=== PATIENT | female | born 1935 | race Caucasian/White ===

== ENCOUNTER 2017-09-21 12:58 | Inpatient (IN) ==
[2017-09-21] MEDS ORDERED: MORPHINE 4 MG/1 ML VIAL ONE (13:35)
[2017-09-21] MEDS ORDERED: ONDANSETRON 4 MG/2 ML VIAL ONE (13:35)
[2017-09-21] MEDS ORDERED: ONDANSETRON 4 MG/2 ML VIAL IV STA (13:37)
[2017-09-21] MEDS ORDERED: MORPHINE 4 MG/1 ML VIAL IV STA (13:37)
[2017-09-21 13:55] LABS: Basophils % 0.5 % (0.0-0.8); Eosinophils # 0.1 10*3/uL (0.0-0.87); Eosinophils % 1.2 % (0.00-10.9); Hemoglobin 12.5 GM/DL (12.0-16.0); Immature Granulocytes % 0.4 %; Immature Granulocytes Absolute 0.03 #; Lymphocytes # 1.3 10*3/uL (1.4-4.0); Lymphocytes % 15.9 % (21.3-54.2); Mean Corpuscular HGB Conc 34.7 GM/DL (32-36); Mean Corpuscular Hemoglobin 32 PG (27-34); Mean Corpuscular Volume 92.1 FL (87-102); Mean Platelet Volume 10.7 FL (9.6-12.0); Monocytes # 0.6 10*3/uL (0.11-0.8); Monocytes % 6.8 % (1.7-12.7); Neutrophils % 75.2 % (38.7-73.9); Platelet Count 216 T/CUMM (130-400); Red Blood Count 3.91 MC/CUMM (3.8-5.5); Red Cell Distribution Width 13.9 % (9.3-17.3)
[2017-09-21 14:54] LABS: Calcium 9.9 MG/DL (8.5-10.1); Osmolality,Calculated 287.1 MOS/KG (273-304); Potassium 3.6 MMOL/L (3.5-5.1)
[2017-09-21] MEDS ORDERED: ONDANSETRON 4 MG/2 ML VIAL IV PRN (14:57)
[2017-09-21] MEDS ORDERED: ACETAMINOPHEN 325 MG TABLET PO PRN (14:57)
[2017-09-21] MEDS: MORPHINE 4 MG/1 ML VIAL IV PRN ×2 (15:44→22:44)
[2017-09-21 16:49] LABS: Apearance,Urine CLEAR (Clear); Bacteria,Urine Occasional /HPF (Few); Bilirubin,Urine Negative (Negative); Blood, Urine Negative (Negative); Glucose,Urine (UA) Negative (Negative); Ketones,Urine 5 mg/dL (Negative); Nitrite,Urine Negative (Negative); Protein,Urine Negative; RBC,Urine 1 /HPF (0-4); Squamous Epithelial Cell,Urine Occasional /HPF (0-10); Urine Color Yellow (Yellow); Urine Specific Gravity 1.008 (1.001-1.035); Urine Urobilinogen < 2.0 EU/DL (0.2-1.0); WBC,Urine 1 /HPF (0-6)
[2017-09-21] MEDS: SODIUM CHLORIDE 0.9% 1,000 ML IV SCH (18:34)
[2017-09-21] MEDS: NEOMYCIN/POLYMYXIN/HC OTIC SOLN 10 ML BOTTLE RIGHT EAR SCH ×2 (18:43→22:14)
[2017-09-21] MEDS: DOCUSATE SODIUM 100 MG CAPSULE PO SCH (22:14)
[2017-09-22] MEDS: MORPHINE 4 MG/1 ML VIAL IV PRN ×2 (03:47→11:17)
[2017-09-22 05:10] LABS: Basophils # 0.1 10*3/uL (0.0-0.2); Basophils % 0.5 % (0.0-0.8); Eosinophils # 0.1 10*3/uL (0.0-0.87); Eosinophils % 0.8 % (0.00-10.9); Hemoglobin 10.3 GM/DL (12.0-16.0); Immature Granulocytes % 0.5 %; Immature Granulocytes Absolute 0.05 #; Lymphocytes # 0.8 10*3/uL (1.4-4.0); Lymphocytes % 8.3 % (21.3-54.2); Mean Corpuscular HGB Conc 34.3 GM/DL (32-36); Mean Corpuscular Hemoglobin 32 PG (27-34); Mean Corpuscular Volume 92.3 FL (87-102); Mean Platelet Volume 10.1 FL (9.6-12.0); Monocytes # 0.9 10*3/uL (0.11-0.8); Monocytes % 8.9 % (1.7-12.7); Neutrophils # 7.8 10*3/uL (1.4-7.4); Platelet Count 183 T/CUMM (130-400); Red Blood Count 3.25 MC/CUMM (3.8-5.5); Red Cell Distribution Width 13.7 % (9.3-17.3); White Blood Count 9.6 T/CUMM (4-12)
[2017-09-22 05:40] LABS: Albumin 3.1 G/DL (3.4-5.0); Bilirubin,Total 0.8 MG/DL (0.2-1.0); Calcium 9.6 MG/DL (8.5-10.1); Osmolality,Calculated 285.3 MOS/KG (273-304); Potassium 3.7 MMOL/L (3.5-5.1); Risk Ratio 1.69; Total Protein 6.5 G/DL (6.4-8.3); VLDL CHOLESTEROL 11.2 MG/DL
[2017-09-22] MEDS: LEVOTHYROXINE 100 MCG TABLET PO SCH (05:47)
[2017-09-22] MEDS: NEOMYCIN/POLYMYXIN/HC OTIC SOLN 10 ML BOTTLE RIGHT EAR SCH ×3 (08:47→22:44)
[2017-09-22] MEDS: DOCUSATE SODIUM 100 MG CAPSULE PO SCH ×2 (08:47→22:44)
[2017-09-22] MEDS: CHOLECALCIFEROL 1,000 UNIT TABLET PO SCH (08:48)
[2017-09-22] MEDS: SOLIFENACIN 5 MG TABLET PO SCH (08:48)
[2017-09-22] MEDS: MULTIVITAMIN (OCUVITE) TABLET PO SCH (08:48)
[2017-09-22] MEDS: PANTOPRAZOLE 40 MG TABLET PO SCH (08:48)
[2017-09-22] MEDS: amLODIPine 5 MG TABLET PO SCH (08:51)
[2017-09-22] MEDS: METOPROLOL SUCCINATE XL 50 MG TABLET PO SCH (08:51)
[2017-09-22] MEDS: SODIUM CHLORIDE 0.9% 1,000 ML IV SCH ×2 (14:51→22:52)
[2017-09-22] MEDS ORDERED: ROPIVACAINE 0.5% 30 ML VIAL ONE ×2 (15:45→15:47)
[2017-09-22] MEDS ORDERED: TRANEXAMIC ACID 1,000 MG/10 ML VIAL ONE (15:45)
[2017-09-22] MEDS ORDERED: EPINEPHrine 1 MG/ML VIAL ONE (15:46)
[2017-09-22] MEDS ORDERED: MORPHINE 10 MG/1 ML VIAL ONE (15:47)
[2017-09-22] MEDS ORDERED: BACITRACIN 50,000 UNIT VIAL ONE (16:24)
[2017-09-22] MEDS ORDERED: ceFAZolin 1,000 MG VIAL ONE (16:31)
[2017-09-22] MEDS ORDERED: SUGAMMADEX 200 MG/2 ML VIAL IV ONE (18:29)
[2017-09-22] MEDS ORDERED: SEVOFLURANE 1 UNIT/15 MINUTE INH ONE (19:06)
[2017-09-22] MEDS ORDERED: fentaNYL 100 MCG/2 ML VIAL ONE (19:06)
[2017-09-22] MEDS ORDERED: PROPOFOL 200 MG/20 ML VIAL IV ONE (19:06)
[2017-09-22] MEDS ORDERED: SODIUM CHLORIDE 0.9% 100 ML IV ONE (19:07)
[2017-09-22] MEDS ORDERED: KETAMINE 500 MG/10 ML VIAL ONE (19:07)
[2017-09-22] MEDS ORDERED: ROCURONIUM 100 MG/10 ML VIAL IV ONE (19:07)
[2017-09-22] MEDS ORDERED: ACETAMINOPHEN 1,000 MG/100 ML VIAL IV ONE (19:07)
[2017-09-22] MEDS ORDERED: PHENYLEPHRINE 1 MG/10 ML SYRINGE IV ONE (19:07)
[2017-09-22] MEDS ORDERED: KETOROLAC 30 MG/1 ML VIAL ONE (19:07)
[2017-09-22] MEDS ORDERED: LACTATED RINGERS 1,000 ML IV ONE (19:07)
[2017-09-22] MEDS: ceFAZolin 1,000 MG in SYRINGE 1 EACH IV SCH (23:53)
[2017-09-23] MEDS: LEVOTHYROXINE 100 MCG TABLET PO SCH (05:37)
[2017-09-23 08:23] LABS: Basophils # 0.1 10*3/uL (0.0-0.2); Basophils % 0.4 % (0.0-0.8); Eosinophils # 0.1 10*3/uL (0.0-0.87); Eosinophils % 0.8 % (0.00-10.9); Hematocrit 31.1 VOL% (35.7-47.0); Hemoglobin 10.3 GM/DL (12.0-16.0); Immature Granulocytes % 0.3 %; Immature Granulocytes Absolute 0.04 #; Lymphocytes # 0.8 10*3/uL (1.4-4.0); Lymphocytes % 6.2 % (21.3-54.2); Mean Corpuscular HGB Conc 33.1 GM/DL (32-36); Mean Corpuscular Hemoglobin 32 PG (27-34); Mean Corpuscular Volume 95.7 FL (87-102); Mean Platelet Volume 9.8 FL (9.6-12.0); Monocytes # 1.1 10*3/uL (0.11-0.8); Monocytes % 8.9 % (1.7-12.7); Neutrophils # 10.1 10*3/uL (1.4-7.4); Neutrophils % 83.4 % (38.7-73.9); Platelet Count 172 T/CUMM (130-400); Red Blood Count 3.25 MC/CUMM (3.8-5.5); Red Cell Distribution Width 13.9 % (9.3-17.3); White Blood Count 12.1 T/CUMM (4-12)
[2017-09-23] MEDS: NEOMYCIN/POLYMYXIN/HC OTIC SOLN 10 ML BOTTLE RIGHT EAR SCH ×4 (09:17→21:11)
[2017-09-23] MEDS: ceFAZolin 1,000 MG in SYRINGE 1 EACH IV SCH (09:18)
[2017-09-23] MEDS: PANTOPRAZOLE 40 MG TABLET PO SCH (09:19)
[2017-09-23] MEDS: SOLIFENACIN 5 MG TABLET PO SCH (09:20)
[2017-09-23] MEDS: amLODIPine 5 MG TABLET PO SCH (09:20)
[2017-09-23] MEDS: DOCUSATE SODIUM 100 MG CAPSULE PO SCH ×2 (09:20→21:11)
[2017-09-23] MEDS: CHOLECALCIFEROL 1,000 UNIT TABLET PO SCH (09:20)
[2017-09-23] MEDS: METOPROLOL SUCCINATE XL 50 MG TABLET PO SCH (09:20)
[2017-09-23] MEDS: MULTIVITAMIN (OCUVITE) TABLET PO SCH (09:20)
[2017-09-23] MEDS: ASPIRIN EC 325 MG TABLET PO SCH (09:22)
[2017-09-23] MEDS: SODIUM CHLORIDE 0.9% 1,000 ML IV SCH ×2 (13:08→20:24)
[2017-09-23] MEDS: MORPHINE 4 MG/1 ML VIAL IV PRN ×2 (15:59→21:07)
[2017-09-24] MEDS: LEVOTHYROXINE 100 MCG TABLET PO SCH (05:45)
[2017-09-24] MEDS: MORPHINE 4 MG/1 ML VIAL IV PRN (05:48)
[2017-09-24 06:24] LABS: Basophils % 0.3 % (0.0-0.8); Eosinophils # 0.1 10*3/uL (0.0-0.87); Eosinophils % 0.6 % (0.00-10.9); Hematocrit 27.4 VOL% (35.7-47.0); Immature Granulocytes % 0.7 %; Immature Granulocytes Absolute 0.06 #; Lymphocytes # 0.6 10*3/uL (1.4-4.0); Lymphocytes % 6.7 % (21.3-54.2); Mean Corpuscular HGB Conc 32.8 GM/DL (32-36); Mean Corpuscular Hemoglobin 32 PG (27-34); Mean Corpuscular Volume 96.1 FL (87-102); Mean Platelet Volume 10.1 FL (9.6-12.0); Monocytes # 0.8 10*3/uL (0.11-0.8); Monocytes % 9.4 % (1.7-12.7); Neutrophils # 7.3 10*3/uL (1.4-7.4); Neutrophils % 82.3 % (38.7-73.9); Platelet Count 165 T/CUMM (130-400); Red Blood Count 2.85 MC/CUMM (3.8-5.5); Red Cell Distribution Width 13.7 % (9.3-17.3); White Blood Count 8.8 T/CUMM (4-12)
[2017-09-24 06:51] LABS: Calcium 9.3 MG/DL (8.5-10.1); Osmolality,Calculated 284.1 MOS/KG (273-304); Potassium 3.5 MMOL/L (3.5-5.1)
[2017-09-24] MEDS: CHOLECALCIFEROL 1,000 UNIT TABLET PO SCH (09:46)
[2017-09-24] MEDS: ASPIRIN EC 325 MG TABLET PO SCH (09:46)
[2017-09-24] MEDS: DOCUSATE SODIUM 100 MG CAPSULE PO SCH ×2 (09:46→21:26)
[2017-09-24] MEDS: PANTOPRAZOLE 40 MG TABLET PO SCH (09:46)
[2017-09-24] MEDS: SOLIFENACIN 5 MG TABLET PO SCH (09:46)
[2017-09-24] MEDS: MULTIVITAMIN (OCUVITE) TABLET PO SCH (09:46)
[2017-09-24] MEDS: amLODIPine 5 MG TABLET PO SCH (09:46)
[2017-09-24] MEDS: METOPROLOL SUCCINATE XL 50 MG TABLET PO SCH (09:47)
[2017-09-24] MEDS: NEOMYCIN/POLYMYXIN/HC OTIC SOLN 10 ML BOTTLE RIGHT EAR SCH ×3 (09:50→21:25)
[2017-09-24] MEDS: SODIUM CHLORIDE 0.9% 1,000 ML IV SCH (12:36)
[2017-09-24] MEDS ORDERED: POLYETHYLENE GLYCOL POWDER 17 GM PACK PO PRN (16:37)
[2017-09-25] MEDS: LEVOTHYROXINE 100 MCG TABLET PO SCH (07:20)
[2017-09-25] MEDS: MULTIVITAMIN (OCUVITE) TABLET PO SCH (08:03)
[2017-09-25] MEDS: amLODIPine 5 MG TABLET PO SCH (08:03)
[2017-09-25] MEDS: METOPROLOL SUCCINATE XL 50 MG TABLET PO SCH (08:03)
[2017-09-25] MEDS: SODIUM CHLORIDE 0.9% 1,000 ML IV SCH (08:03)
[2017-09-25] MEDS: CHOLECALCIFEROL 1,000 UNIT TABLET PO SCH (08:03)
[2017-09-25] MEDS: ASPIRIN EC 325 MG TABLET PO SCH (08:03)
[2017-09-25] MEDS: DOCUSATE SODIUM 100 MG CAPSULE PO SCH ×2 (08:03→20:54)
[2017-09-25] MEDS: PANTOPRAZOLE 40 MG TABLET PO SCH (08:03)
[2017-09-25] MEDS: SOLIFENACIN 5 MG TABLET PO SCH (08:03)
[2017-09-25] MEDS: NEOMYCIN/POLYMYXIN/HC OTIC SOLN 10 ML BOTTLE RIGHT EAR SCH ×3 (08:04→20:55)
[2017-09-26] MEDS: LEVOTHYROXINE 100 MCG TABLET PO SCH (05:30)
[2017-09-26] MEDS: SODIUM CHLORIDE 0.9% 1,000 ML IV SCH (09:11)
[2017-09-26] MEDS: CHOLECALCIFEROL 1,000 UNIT TABLET PO SCH (09:13)
[2017-09-26] MEDS: DOCUSATE SODIUM 100 MG CAPSULE PO SCH (09:13)
[2017-09-26] MEDS: SOLIFENACIN 5 MG TABLET PO SCH (09:13)
[2017-09-26] MEDS: METOPROLOL SUCCINATE XL 50 MG TABLET PO SCH (09:13)
[2017-09-26] MEDS: amLODIPine 5 MG TABLET PO SCH (09:14)
[2017-09-26] MEDS: PANTOPRAZOLE 40 MG TABLET PO SCH (09:14)
[2017-09-26] MEDS: MULTIVITAMIN (OCUVITE) TABLET PO SCH (09:14)
[2017-09-26] MEDS: NEOMYCIN/POLYMYXIN/HC OTIC SOLN 10 ML BOTTLE RIGHT EAR SCH (09:16)
[2017-09-26] MEDS: ASPIRIN EC 325 MG TABLET PO SCH (09:16)
[2017-09-26 11:22] VITALS: BP 133/75
== END 2017-09-26 14:30 | disposition swing bed (61) | DRG 470 ==
LOC: EDBD → EDUNIT# → N.ED 12:58 → N.EDINP 14:57 → N.3E 15:34
PROVIDERS: ADMIT Internal Medicine; ATTEND Internal Medicine